=== PATIENT | female | born 1960 | race Caucasian/White ===

== ENCOUNTER 2017-12-20 12:06 | Outpatient (CLI) | payer OTHER ==
--- NOTE | 2017-12-20 21:13 | RAD ---
PELVIS ONE VIEW: 12/20/17 No fracture or area of bony destruction was seen. The SI joints appears normal. There is no diastasis of the pubic symphysis. There is a little irregularity in the mid portion of the right inferior pubic ring. There may have be en an old injury here, but this does not look acute. Both hips appear intact. The hip joints spaces are slightly narrowed but symmetrically so. The articu lar surfaces are smooth. IMPRESSION: 1. No acute bony findings to explain the patient's pelvic pain. 2. Possible old trauma to the right inferior pubic ring. POS: HOME
== END 2017-12-20 12:07 | disposition home or self-care (01) ==
LOC: BURRAD 12:06
PROVIDERS: ATTEND Family Medicine
DX: R10.2 Pelvic and perineal pain (principal)
CPT/HCPCS: 72170